=== PATIENT | male | born 1980 | race Caucasian/White ===

== ENCOUNTER 2017-04-10 16:16 | Emergency (ER) | payer BC ==
[~2017-04-10] VITALS: Ht 193 cm; Wt 102.9 kg
[2017-04-10] MEDS ORDERED: NAPHCON-A EYE D15 ML BOTH EYES (17:21)
[2017-04-10 17:34] VITALS: BP 137/83
== END 2017-04-10 17:35 | disposition home or self-care (01) ==
LOC: EME 16:16
DX: H11.421 Conjunctival edema, right eye (principal)
CPT/HCPCS: 99281; 99284